=== PATIENT | female | born 1965 | race Caucasian/White ===

== ENCOUNTER 2019-07-19 09:57 | Outpatient (CLI) | payer SELFPAY | END 2019-07-19 21:02 | disposition home or self-care (01) | LOC: SMA 09:57 | PROVIDERS: ATTEND Family Medicine | DX: Z12.31 Encounter for screening mammogram for malignant neoplasm of breast (principal) | CPT/HCPCS: 77067 ==

== ENCOUNTER 2020-07-24 10:25 | Outpatient (CLI) | payer SELFPAY | END 2020-07-24 19:01 | disposition home or self-care (01) | LOC: SMA 10:25 | PROVIDERS: ATTEND Family Medicine | DX: Z12.31 Encounter for screening mammogram for malignant neoplasm of breast (principal) | CPT/HCPCS: 77067 ==

== ENCOUNTER 2022-08-02 12:57 | Outpatient (CLI) | payer SELFPAY | END 2022-08-02 20:05 | disposition home or self-care (01) | LOC: MERGE 12:57 → SRD 12:57 | PROVIDERS: ATTEND Family Medicine | DX: Z12.31 Encounter for screening mammogram for malignant neoplasm of breast (principal) | CPT/HCPCS: 77067 ==

== ENCOUNTER 2023-07-31 11:21 | Outpatient (CLI) | payer SELFPAY | END 2023-07-31 19:23 | disposition home or self-care (01) | LOC: SMA 11:21 | PROVIDERS: ATTEND Family Medicine | DX: Z12.31 Encounter for screening mammogram for malignant neoplasm of breast (principal) | CPT/HCPCS: 77067 ==

== ENCOUNTER 2024-08-02 09:25 | Outpatient (CLI) | payer SELFPAY | END 2024-08-02 18:48 | disposition home or self-care (01) | LOC: SMA 09:25 | PROVIDERS: ATTEND Family Medicine | DX: Z12.31 Encounter for screening mammogram for malignant neoplasm of breast (principal) | CPT/HCPCS: 77067 ==